=== PATIENT | female | born 1960 | race Caucasian/White ===

== ENCOUNTER 2018-06-29 11:24 | Emergency (ER) | payer MEDICAID ==
[~2018-06-29] VITALS: Ht 162.6 cm; Wt 54.5 kg
[~2018-06-29 11:24] MED LIST: DIPH25CA83 PO
[2018-06-29] MEDS ORDERED: TRAM50TA2 PO (13:33)
[2018-06-29 13:41] VITALS: BP 139/64
== END 2018-06-29 13:42 | disposition home or self-care (01) ==
LOC: ER 11:25
DX: R10.30 Lower abdominal pain, unspecified (principal)
CPT/HCPCS: 72100; 99283

== ENCOUNTER 2019-10-24 16:44 | Emergency (ER) | payer MEDICAID, OTHER ==
[~2019-10-24] VITALS: Ht 162.6 cm; Wt 56.0 kg
[2019-10-24 16:47] VITALS: BP 123/77
[2019-10-24] MEDS ORDERED: sulfamethoxazole/trimethoprim DS (800/160mg) tablet PO ONE (17:20)
[2019-10-24] MEDS ORDERED: cephalexin 250mg capsule PO ONE (17:20)
[2019-10-24] MEDS ORDERED: SULF1TAB49 PO (17:32)
[2019-10-24] MEDS ORDERED: CEPH500C5 PO (17:32)
--- NOTE | 2019-10-24 17:53 | NUR ---
left knee cleans and dressing apply. atb,non-her, rocco wrap
== END 2019-10-24 18:17 | disposition home or self-care (01) ==
LOC: ER 16:45
DX: S81.002A Unspecified open wound, left knee, initial encounter (principal); F15.10 Other stimulant abuse, uncomplicated; Z79.2 Long term (current) use of antibiotics; Z79.899 Other long term (current) drug therapy; W45.8XXA Other foreign body or object entering through skin, initial encounter; Y93.89 Activity, other specified; Y92.89 Other specified places as the place of occurrence of the external cause; Y99.8 Other external cause status
CPT/HCPCS: 99284